=== PATIENT | male | born 1975 ===

== ENCOUNTER 2023-07-28 15:33 | Outpatient (CLI) | payer OTHER ==
[~2023-07-28 15:33] MED LIST: COZAAR50 MG PO; LIPI PO; MIRAL PO; SINGULAIR10 MG PO
== END 2023-07-28 23:00 | disposition home or self-care (01) ==
LOC: LAB 15:33
PROVIDERS: ATTEND Internal Medicine Geriatric Medicine
DX: D68.9 Coagulation defect, unspecified (principal)

== ENCOUNTER 2023-08-03 07:45 | Day surgery (SDC) | payer OTHER | END 2023-08-03 17:50 | disposition home or self-care (01) | LOC: CIR.AMB 07:45 | PROVIDERS: ATTEND Colon & Rectal Surgery | DX: K60.2 Anal fissure, unspecified (principal); K62.4 Stenosis of anus and rectum; K60.1 Chronic anal fissure; K92.1 Melena; Z20.822 Contact with and (suspected) exposure to COVID-19; K64.2 Third degree hemorrhoids ==